=== PATIENT | male | born 2000 | race Caucasian/White ===

== ENCOUNTER 2024-12-28 11:51 | Emergency (ER) | payer BC ==
[~2024-12-28] VITALS: Ht 175.3 cm; Wt 61.4 kg
--- NOTE | 2024-12-28 11:59 | Physician Documentation ---
History of Present Illness ~ Stated Complaint: SYNCOPE Time Seen by MD: 11:58 OK to notify your PCP?: Yes Source: patient, RN/MD, EMS, RN notes reviewed, EMS notes reviewed, old records Mode of Arrival: EMS Exam Limitations: no limitations HPI 24 year old male presents to the emergency department via EMS for complaints of syncopal episode prior to arrival today. He states that he was at the dentist and while in the lobby paying his bill he had began to feel lightheaded and passed out. EMS states that his pressures were intact before and directly after the procedure. En route they noted his blood pressure to be in the low hundreds.When asked patient states that he did not eat anything for breakfast this morning prior to the extraction of his right molar. Patient denies any other associated symptoms at this time. Patient denies any other alleviating or exacerbating factors Medication Reconciliation Allergies: Coded Allergies: aspirin (Verified Allergy, Unknown, 12/28/24) Past Medical History Past Medical History: No Pertinent History Past Surgical History: no surgical history Smoking Status: Never smoker Alcohol Use: None Drug Use: none Review of Systems All Other Systems at this time: Reviewed and Negative ROS As stated above in the HPI, otherwise all systems are reviewed and negative. Physical Exam Vital Signs: RN Vital Signs have been reviewed: Yes Pulse Oximetry Reflects: adequate oxygenation Physical Exam General: The patient is well developed, well nourished, nontoxic appearing and is in no acute distress. Skin: [place], warm and dry with no rashes. HEENT: Head was normocephalic and atraumatic. Eyes - pupils equal, round, reactive to light and accommodation. Extraocular movements were intact. Conjunctivae were nonicteric. Ears - bilateral tympanic membranes were normal. The mouth and oropharynx were clear with moist mucous membranes. There were no pharyngeal exudates or erythema. Neck: Supple and nontender. There was no jugular venous distention, lymphadenopathy, thyromegaly or masses. Chest: Clear to auscultation bilaterally without wheezes, rales or rhonchi. No accessory muscle use. No dullness to percussion. Heart: Rate regular and rhythmic. S1, S2. No murmurs. Palpation of the chest wall was normal. No rubs or thrills. Abdomen: Soft, nontender and nondistended. Positive bowel sounds. No guarding or rebound. No hepatosplenomegaly or palpable masses. Extremities: No cyanosis, clubbing or edema. The patient moves all extremities. Pulses were equal and symmetric. Neurologic: Cranial nerves II-XII were intact. Sensation was intact to light touch throughout. Motor strength was 5/5 in all four extremities. Deep tendon reflexes were intact in both upper and lower extremities. Psychologic: The patient was oriented to person, place and time. The patient demonstrated appropriate judgement and insight. Progress Results/Orders Reviewed/noted all lab results: Yes Results/Orders Orders - PERFECTO PIMENTEL MD Monitor (12/28/24 11:58) Saline Lock (12/28/24 11:58) Electrocardiogram (12/28/24 11:59) Completed Orders - PERFECTO PIEMNTEL MD Cbc/Diff (12/28/24 11:58) MG (12/28/24 11:58) Urinalysis, Cult If Indicated (12/28/24 11:58) Normal Saline 1000ml (Sodium Chloride 10 (12/28/24 12:00) BMP (12/28/24 11:58) Electrocardiogram (12/28/24 11:59) Vital Signs 12/28/24 12/28/24 12/28/24 12/28/24 11:57 12:28 13:01 14:31 Temp 97.5 97.5 Pulse 66 80 80 Resp 16 16 20 18 B/P (MAP) 114/57 123/75 (91) 117/67 Pulse Ox 100 99 100 Laboratory Tests Test 12/28/24 12:23 12/28/24 13:49 White Blood Count 8.2 Red Blood Count 4.40 L Hemoglobin 13.0 L Hematocrit 38.5 L Mean Corpuscular Volume 87.7 Mean Corpuscular Hemoglobin 29.6 Mean Corpuscular Hemoglobin Concent 33.8 Red Cell Distribution Width 13.8 Platelet Count 251 Mean Platelet Volume 7.4 Neutrophils (%) (Auto) 77.8 H Lymphocytes (%) (Auto) 11.8 L Monocytes (%) (Auto) 9.5 Eosinophils (%) (Auto) 0.7 Basophils (%) (Auto) 0.2 Neutrophils # (Auto) 6.4 Lymphocytes # (Auto) 1.0 L Monocytes # (Auto) 0.8 Eosinophils # (Auto) 0.1 Basophils # (Auto) 0.0 CBC Comment Sodium Level 144 Potassium Level 3.7 Chloride Level 108 H Carbon Dioxide Level 26.4 Anion Gap 10 Blood Urea Nitrogen 17 Creatinine 1.09 Estimated GFR/1.73 m2 82 BUN/Creatinine Ratio 15.6 Glucose Level 99 Calcium Level 8.3 L Magnesium Level 1.7 Albumin 3.6 Chemistry Comments Urine Specimen Description Non-specified Urine Color Yellow Urine Clarity Clear Urine pH 6.0 Urine Specific [place] 1.015 Urine Protein Negative Urine Glucose (UA) Negative Urine Ketones Negative Urine Occult Blood Negative Urine Nitrite Negative Urine Bilirubin Negative Urine Urobilinogen 0.2 Urine Leukocyte Esterase Negative Urine Culture Indicated Not ind Volume Urine Centrifuged 10 ml Urine Comment Re-Evaluation Re-Evaluation : Re-Evaluation: Improved Progress Patient was seen and examined. Patient is given reassurance. Patient has a procedure most likely vasovagal reaction of sorts. Infections always possible since he has a dental procedure performed. However CBC was within normal limits some mild anemia 13 and 38 platelets 251. Chemistry was within normal limits urinalysis was also within normal limits. Patient received a fluid bolus of 1 L re-evaluated his orthostatics were obtained and were negative. Patient's vital signs were within normal limits and was discharged home most likely secondary to some dehydration. Patient was NPO for his procedure and this breakfast in his last meal or fluids was the night prior. Continuous groundwater monitoring technician interpretation shows normal sinus rhythm heart rate 70s, no ectopy, normal, my interpretation. Pulse oximetry monitor interpretation shows normal oxygenation 99% room air, normal, my interpretation. 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 Perfecto Pimentel Measurements Intervals [place] Rate: 66 P: 36 DE: 168 QRS: 76 QRSD: 83 T: 66 QT: 412 QTc: 432 Interpretive Statements Sinus rhythm RSR' in V1 or V2, probably normal variant ST elev, probable normal early repol pattern Electronically Signed On 12-28-2024 13:27:[address] Perfecto Pimentel Please click the below link to view image of tracing. EKG Date and Time:12/28/24 1213 Electronically Signed by: PERFECTO PIMENTEL MD Date and Time: 12/28/24 1327 Medical Decision Making Additional info obtained from: old records Differential Dx:Considerations: Include: dehydration, encephalopathy, hypoglycemia, hypernatremia, hyponatremia, drug overdose, medication toxicity, infection - sepsis, other Departure Time of Disposition: 14:25 Disposition: 01 HOME / SELF CARE / HOMELESS Impression: Primary Impression: Syncope Qualified Codes: R55 - Syncope and collapse Additional Impression: Vaso vagal episode Condition: Stable Discharge Instructions: Syncope, Adult Referrals: NO PRIMARY CARE PROVIDER (PCP) Education Educated: Patient Educated regarding: diagnosis, treatment, prognosis, need for follow up, other Signature Scribe Signature: Scribed for Perfecto Pimentel MD by Breanna Muñoz . 12/28/24 12:04 Attestation: The note accurately reflects work and decisions made by me.Perfecto Pimentel MD 12/28/24 11:59 PERFECTO PIMENTEL MD December 28, 2024 11:59 BREANNA MIRANDA December 28, 2024 12:05
--- NOTE | 2024-12-28 12:15 | ELECTROCARDIOGRAPH REPORT ---
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 Lisa Manzanares Measurements Intervals [place] Rate: 66 P: 36 MS: 168 QRS: 76 QRSD: 83 T: 66 QT: 412 QTc: 432 Interpretive Statements Sinus rhythm RSR' in V1 or V2, probably normal variant ST elev, probable normal early repol pattern Electronically Signed On 12-28-2024 13:27:[address] Lisa Manzanares Please click the below link to view image of tracing.
[2024-12-28] MEDS: normal saline 1000ML IV soln IVB ONE (12:27)
[2024-12-28 13:06] LABS: ALBUMIN 3.6 G/DL (3.4-5.0); ANION GAP 10 (8-16); BLOOD UREA NITROGEN 17 MG/DL (7-18); BUN/CREATININE RATIO 15.6 (10.0-20.0); CALCIUM 8.3 MG/DL (8.5-10.1); CHLORIDE 108 MMOL/L (99-107); CREATININE 1.09 MG/DL (0.60-1.10); GLUCOSE 99 MG/DL (70-104); MAGNESIUM 1.7 MG/DL (1.5-2.4); POTASSIUM 3.7 MMOL/L (3.5-5.1); SODIUM 144 MMOL/L (135-145); TOTAL CARBON DIOXIDE 26.4 MMOL/L (24-32); eCRCL 89 ML/MIN; eGFR 82 ML/MIN
[2024-12-28 13:10] LABS: BASOPHILS % (AUTO) 0.2 % (0-1); EOSINOPHILS # (AUTO) 0.1 X10'3 (0-0.9); EOSINOPHILS % (AUTO) 0.7 % (0-6); HEMATOCRIT 38.5 % (42.0-52.0); LYMPHOCYTES % (AUTO) 11.8 % (21-51); MEAN CORPUSCULAR HEMOGLOBIN 29.6 PG (27.0-31.0); MEAN CORPUSCULAR HGB CONC 33.8 g/dL (33.0-36.5); MEAN CORPUSCULAR VOLUME 87.7 FL (78-98); MEAN PLATELET VOLUME 7.4 FL (7.4-10.4); MONOCYTES # (AUTO) 0.8 X10'3 (0-0.9); MONOCYTES % (AUTO) 9.5 % (2-12); NEUTROPHILS # (AUTO) 6.4 X10'3 (1.8-7.7); NEUTROPHILS % (AUTO) 77.8 % (42-75); PLATELET COUNT 251 X10'3 (140-440); RED CELL DISTRIBUTION WIDTH 13.8 % (11.5-14.5); WHITE BLOOD COUNT 8.2 X10'3 (4.5-11.0)
[2024-12-28 14:05] LABS: BILIRUBIN,URINE NEGATIVE (Neg); CLARITY,URINE CLEAR (Clear); COLOR,URINE YELLOW (Yellow); GLUCOSE, URINE NEGATIVE (Neg); KETONES,URINE NEGATIVE (Neg); LEUKOCYTE ESTERASE ,URINE NEGATIVE (Neg); NITRITES, URINE NEGATIVE (Neg); OCCULT BLOOD,URINE NEGATIVE (Neg); PROTEIN,URINE NEGATIVE (Neg); UROBILINOGEN,URINE 0.2 E.U/dL (0.2-1.0)
[2024-12-28 14:12] LABS: UA COLLECTION TYPE NON-SPECIFIED
[2024-12-28 14:31] VITALS: BP 117/67; PULSE 80; RESP 18; TEMP 97.5; O2SAT 100
== END 2024-12-28 14:41 | disposition home or self-care (01) ==
LOC: ER 11:51
DX: R55 Syncope and collapse (principal); Z88.6 Allergy status to analgesic agent
CPT/HCPCS: 36415; 80048; 81003; 83735; 85025; 93005; 99284; J7030